=== PATIENT | female | born 1975 | race American Indian/Alaskan Native ===

== ENCOUNTER 2021-09-15 10:16 | Outpatient (CLI) | payer OTHER ==
[2021-09-15 11:47] LABS: Blood Urea Nitrogen 17 mg/dL (7-17)
--- NOTE | 2021-09-15 12:49 | Cat Scan Report ---
CT ABDOMEN WITH CONTRAST INDICATION / CLINICAL INFORMATION: ABDOMINAL PAIN Omni 300 100 ml. TECHNIQUE: Axial CT images were obtained through the abdomen after IV contrast. All CT scans at this location are performed using CT dose reduction for ALARA by means of automated exposure control. COMPARISON: None available. FINDINGS: LOWER CHEST: 1 cm lesion in the right breast on series 2 image 1 is nonspecific. LIVER: Hepatic steatosis. No focal liver lesion. GALLBLADDER: No significant abnormality. BILE DUCTS: No significant abnormality. PANCREAS: No significant abnormality. SPLEEN: No significant abnormality. ADRENALS: No significant abnormality. RIGHT KIDNEY / URETER: Simple appearing cyst in right midportion. LEFT KIDNEY / URETER: No significant abnormality. STOMACH / SMALL BOWEL: No significant abnormality. COLON: The visualized colon demonstrates no acute abnormality. APPENDIX: Not visualized. PERITONEUM: No free air or free fluid. LYMPH NODES: No significant adenopathy. AORTA / ARTERIES: No significant abnormality. IVC / VEINS: No significant abnormality. ADDITIONAL FINDINGS: There is an enhancing mass which arises from the pelvis but is only partially vi sualized and measures approximately 6.0 x 7.5 cm Fluid attenuating area in the ventral abdomen above the umbilicus likely represents abdominal fluid trapped in a small ventral hernia. SKELETAL SYSTEM: No significant abnormality. IMPRESSION: 1. Enhancing mass appearing to arise from pelvis is only partially visualized. Recommend repeat imagi ng to include the pelvis for further evaluation. 2. Hepatic steatosis. 3. Incidental 1 cm lesion in inferior right breast is nonspecific. Recommend clinical correlation wit h mammography and ultrasound as indicated. 4. Fluid attenuating lesion in the subcutaneous fat above the umbilicus likely represents trapped flu id in a small ventral hernia. Signer Name: Damien Faye MD Signed: 09/15/2021 12:45 PM Workstation Name: [email or web address]
== END 2021-09-15 10:17 | disposition home or self-care (01) ==
LOC: CT 10:16
PROVIDERS: ATTEND Radiology Diagnostic Radiology
DX: K76.0 Fatty (change of) liver, not elsewhere classified (principal); K43.9 Ventral hernia without obstruction or gangrene; R22.2 Localized swelling, mass and lump, trunk
CPT/HCPCS: 36415; 74160; 82565; 84520; Q9967